=== PATIENT | female | born 1990 | race Two or more races ===

== ENCOUNTER 2021-02-12 06:43 | Inpatient (IN) | payer MEDICAID, OTHER ==
[~2021-02-12] VITALS: Ht 157.5 cm; Wt 80.9 kg
[2021-02-12 07:00] VITALS: BP 115/70
[2021-02-12] MEDS ORDERED: PREN1TAB60 PO (07:44)
[2021-02-12] MEDS ORDERED: VALA500T4 PO (07:44)
[2021-02-12] MEDS ORDERED: METOCLOPRAMIDE 5 MG/ML, 2ML ONE (07:51)
[2021-02-12] MEDS ORDERED: SODIUM CITRATE/CITRIC ACID 15 ML UDC ONE (07:52)
[2021-02-12 08:33] LABS: BASOPHILS % (AUTO) 0 % (0-1); EOSINOPHILS % (AUTO) 1 % (1-7); LYMPHOCYTES % (AUTO) 16 % (22-44); MEAN CORPUSCULAR HEMOGLOBIN 25.1 pg (27.0-34.8); MEAN CORPUSCULAR HGB CONC 32.5 g/dL (32.4-35.8); MEAN PLATELET VOLUME 8.7 fL (7.4-10.4); MONOCYTES % (AUTO) 6 % (2-9); NEUTROPHILS % (AUTO) 77 % (42-75); PLATELET COUNT 225 x10^3/uL (130-400); RED CELL DISTRIBUTION WIDTH 17.9 % (9.6-15.2)
[2021-02-12 08:54] VITALS: BP 125/82
[2021-02-12] MEDS ORDERED: NEWBORN KIT ONE (08:57)
[2021-02-12] MEDS ORDERED: LACTATED RINGERS 1,000 ML IVBOLUS ONE (09:00)
[2021-02-12] MEDS ORDERED: METOCLOPRAMIDE 5 MG/ML, 2ML IV ONE (09:00)
[2021-02-12] MEDS ORDERED: LACTATED RINGERS 1,000 ML IV SCH ×3 (09:00→11:00)
[2021-02-12] MEDS ORDERED: SODIUM CITRATE/CITRIC ACID 30 ML UDC PO ONE (09:00)
[2021-02-12] MEDS ORDERED: morphine SULFATE/PF 0.5 MG/ML, 10ML ONE (09:28)
[2021-02-12] MEDS ORDERED: KETOROLAC 30 MG/1 ML ONE (09:30)
[2021-02-12] MEDS ORDERED: DEXAMETHASONE 4 MG/ML, 1ML ONE (09:30)
[2021-02-12] MEDS ORDERED: OXYTOCIN 10 UNITS/ML, 1ML ONE (09:30)
[2021-02-12] MEDS ORDERED: CEFAZOLIN 1,000 MG ONE (09:30)
[2021-02-12] MEDS ORDERED: ONDANSETRON 2MG/ML, 2ML ONE (09:30)
[2021-02-12] MEDS ORDERED: SODIUM CHLORIDE 0.9% PF 10ML ONE (09:30)
[2021-02-12] MEDS ORDERED: PHENYLEPHRINE 10 MG/ML ONE (09:30)
[2021-02-12] MEDS ORDERED: ONDANSETRON 2MG/ML, 2ML IV PRN (11:00)
[2021-02-12] MEDS ORDERED: MISOPROSTOL 200 MCG TABLET PR PRN (11:00)
[2021-02-12] MEDS ORDERED: ACETAMINOPHEN 325 MG TABLET PO PRN (11:00)
[2021-02-12] MEDS ORDERED: OXYTOCIN 30U/ 0.9% NaCL 500ML 500 ML IV SCH (11:00)
[2021-02-12] MEDS ORDERED: METHYLERGONOVINE 0.2 MG/ML IM PRN (11:00)
[2021-02-12] MEDS ORDERED: KETOROLAC 30 MG/1 ML IV SCH (11:00)
[2021-02-12] MEDS ORDERED: MORPHINE SULFATE 4 MG/ML, 1ML IVPush PRN (11:00)
[2021-02-12] MEDS ORDERED: morphine SULFATE 10 MG/ML, 1ML IVPush PRN ×2 (11:00→12:00)
[2021-02-12] MEDS ORDERED: MEPERIDINE/PF 100 MG/ML IVPush PRN (11:00)
[2021-02-12] MEDS ORDERED: SIMETHICONE 80 MG CHEW TAB PO PRN (11:00)
[2021-02-12] MEDS ORDERED: OXYcodone 5 MG/5 ML ORAL.SOL UDC ONE (11:55)
[2021-02-12] MEDS ORDERED: ONDANSETRON 2MG/ML, 2ML IVPush PRN (12:00)
[2021-02-12] MEDS ORDERED: OXYcodone/APAP 5/325MG TABLET PO PRN (12:00)
[2021-02-12] MEDS ORDERED: OXYcodone 5 MG/5 ML ORAL.SOL UDC PO PRN (12:00)
[2021-02-12] MEDS ORDERED: NO SEDATIVES, TRANQUILIZERS OR ANTIEMETICS XX SCH (12:00)
[2021-02-12] MEDS ORDERED: DIPHENHYDRAMINE 50 MG/ML, 1ML IV PRN (12:00)
[2021-02-12 12:45] VITALS: BP 138/84
[2021-02-12] MEDS ORDERED: KETOROLAC 30 MG/1 ML IVPush SCH (16:00)
[2021-02-12 16:10] VITALS: BP 121/75
[2021-02-12 18:07] LABS: BASOPHILS % (AUTO) 0 % (0-1); EOSINOPHILS % (AUTO) 0 % (1-7); LYMPHOCYTES % (AUTO) 6 % (22-44); MEAN CORPUSCULAR HEMOGLOBIN 24.8 pg (27.0-34.8); MEAN PLATELET VOLUME 8.6 fL (7.4-10.4); MONOCYTES % (AUTO) 3 % (2-9); NEUTROPHILS % (AUTO) 91 % (42-75); PLATELET COUNT 220 x10^3/uL (130-400); RED BLOOD COUNT 4.41 x10^6/uL (3.82-5.3); RED CELL DISTRIBUTION WIDTH 18.1 % (9.6-15.2)
[2021-02-12 20:00] VITALS: BP 124/69
[2021-02-12] MEDS: IBUPROFEN 600 MG TABLET PO PRN (20:14)
[2021-02-12] MEDS: DOCUSATE 100 MG CAPSULE PO PRN (20:14)
[2021-02-12] MEDS: VALACYCLOVIR 500MG TABLET HOMEMEDPO SCH (20:19)
[2021-02-12] MEDS ORDERED: VALACYCLOVIR 500MG TABLET PO SCH (21:00)
[2021-02-13 00:09] VITALS: BP 130/86
[2021-02-13 04:05] VITALS: BP 121/78
[2021-02-13] MEDS: OXYcodone/APAP 5/325MG TABLET PO PRN ×4 (04:18→22:18)
[2021-02-13] MEDS: IBUPROFEN 600 MG TABLET PO PRN ×3 (04:18→18:18)
[2021-02-13 07:10] VITALS: BP 114/74
[2021-02-13] MEDS: DOCUSATE 100 MG CAPSULE PO PRN (09:03)
[2021-02-13] MEDS: PRENATAL VIT/IRON/FA 1 EACH TABLET PO SCH (09:03)
[2021-02-13 20:00] VITALS: BP 135/80
[2021-02-13] MEDS: VALACYCLOVIR 500MG TABLET HOMEMEDPO SCH (22:18)
[2021-02-14] MEDS: DOCUSATE 100 MG CAPSULE PO PRN ×2 (00:08→09:21)
[2021-02-14] MEDS: IBUPROFEN 600 MG TABLET PO PRN ×2 (00:08→06:20)
[2021-02-14] MEDS: OXYcodone/APAP 5/325MG TABLET PO PRN ×2 (02:17→06:20)
[2021-02-14] MEDS ORDERED: IBUP-1222 PO (07:17)
[2021-02-14] MEDS ORDERED: OXYC1TAB14 PO (07:17)
[2021-02-14] MEDS ORDERED: DOCU-131 PO (07:17)
[2021-02-14 07:30] VITALS: BP 137/83
[2021-02-14] MEDS: PRENATAL VIT/IRON/FA 1 EACH TABLET PO SCH (09:21)
== END 2021-02-14 13:48 | disposition home or self-care (01) | DRG 787 ==
LOC: LDOP 06:43 → LDIP 07:57 → 2NW 12:36
PROVIDERS: ADMIT Obstetrics & Gynecology; ATTEND Obstetrics & Gynecology
PROC: 10D00Z1 Extraction of Products of Conception, Low, Open Approach (ICD-10-PCS; principal; 2021-02-12)
DX: O34.211 Maternal care for low transverse scar from previous cesarean delivery (principal); O98.52 Other viral diseases complicating childbirth; Z20.822 Contact with and (suspected) exposure to COVID-19; Z3A.38 38 weeks gestation of pregnancy; Z37.0 Single live birth; B00.9 Herpesviral infection, unspecified; O69.81X0 Labor and delivery complicated by cord around neck, without compression, not applicable or unspecified; O69.2XX0 Labor and delivery complicated by other cord entanglement, with compression, not applicable or unspecified
CPT/HCPCS: 36415; 85025; 86592; 86850; 86900; 87635; G0378; J0690; J1100; J1885; J2274; J2405; J2370; J2590; J2765; J7120